=== PATIENT | male | born 1990 | race Caucasian/White ===

== ENCOUNTER 2016-07-29 12:31 | Emergency (ER) | payer SELFPAY ==
[~2016-07-29] VITALS: Ht 175.3 cm; Wt 119.0 kg
[~2016-07-29 12:31] MED LIST: ARIP1TAB5 PO; ATOM60 PO; MOBI15TA PO; ZITHTAB PO
[2016-07-29 12:55] VITALS: BP 149/96; PULSE 98; RESP 20; TEMP 98.4; O2SAT 98
[2016-07-29] MEDS ORDERED: ONDANSETRON HCL 4 MG/2 ML VIAL IV ONE (14:00)
[2016-07-29] MEDS ORDERED: SODIUM CHLOR 0.9% 1000 ML INJ 1,000 ML IV SCH (14:00)
[2016-07-29 14:04] LABS: AUTOMATED NEUTROPHIL # 12.1 TH/MM3 (1.8-7.7); BASOPHIL # 0.2 TH/MM3 (0-0.2); BASOPHIL % 1.8 % (0.0-2.0); HEMATOCRIT 44.4 % (39.0-51.0); LYMPH % 6.3 % (9.0-44.0); LYMPHOCYTE # 0.8 TH/MM3 (1.0-4.8); MEAN CELL VOLUME 86.3 FL (80.0-100.0); MEAN CORPUSCULAR HEMOGLOBIN 29.2 PG (27.0-34.0); MEAN CORPUSCULAR HGB CONC 33.8 % (32.0-36.0); MONO % 1.1 % (0.0-8.0); NEUT % 90.8 % (16.0-70.0); PLATELET COUNT 355 TH/MM3 (150-450); RED BLOOD COUNT 5.15 MIL/MM3 (4.50-5.90); RED CELL DISTRIBUTION WIDTH 12.3 % (11.6-17.2); WHITE BLOOD COUNT 13.2 TH/MM3 (4.0-11.0)
[2016-07-29 14:05] LABS: BLOOD, URINE TRACE (NEG); GLUCOSE,URINE NEG (NEG); KETONE, URINE TRACE mg/dL (NEG); NITRITE,URINE NEG (NEG)
--- NOTE | 2016-07-29 14:05 | PD ---
HPI Chief Complaint: GI Complaint Time Seen by Provider: 13:27 Travel History International Travel<30 days: No Contact w/Intl Traveler<30days: No Traveled to known affect area: No History of Present Illness HPI To 26-year-old man who presents to the emergency department of nausea vomiting ongoing for the past week or so. Describes yellowish emesis. He got concerned to 6 episodes of vomiting today. No fevers or chills. No history of previous similar symptoms. No history of abdominal surgeries. Has uses NSAIDs in the past but not really for the past month or 2. Rare alcohol use. No history of GERD or indigestion. No significant abdominal pain. He otherwise had been feeling generally well. History Past Medical History Narrative Medical Kidney stones Hypertension Bipolar disorder/ADHD Influenza Vaccination: No Past Surgical History Surgical History: No Previous Surgery Social History Alcohol Use: No (DENIES) Tobacco Use: No ("QUIT 2 MONTHS AGO") Allergies-Medications (Allergen,Severity, Reaction): Coded Allergies: Hydrocodone (Verified Allergy, Intermediate, Rash, 06/22/16) Reported Meds & Prescriptions Reported Meds & Active Scripts Active Reported Strattera (Atomoxetine HCl) 60 Mg Cap 60 Mg PO DAILY Abilify (Aripiprazole) 10 Mg Tab 10 Mg PO DAILY Review of Systems Except as stated in HPI: all other systems reviewed are Neg Physical Exam Narrative GENERAL: Well-appearing 26-year-old man, no acute distress. SKIN: Warm and dry. CARDIOVASCULAR: Regular rate and rhythm. No murmur appreciated. RESPIRATORY: No accessory muscle use. Clear to auscultation. Breath sounds equal bilaterally. GASTROINTESTINAL: Abdomen is obese, soft, with mild to moderate right lower quadrant tenderness to palpation. No rebound or guarding. MUSCULOSKELETAL: No obvious deformities. No edema. NEUROLOGICAL: Awake and alert. No obvious cranial nerve deficits. Motor grossly within normal limits. Normal speech. PSYCHIATRIC: Appropriate mood and affect; insight and judgment normal. Data Data Last Documented VS Vital Signs Date Time Temp Pulse Resp B/P Pulse Ox O2 Delivery O2 Flow Rate FiO2 07/29/16 12:55 98.4 98 20 149/96 98 Orders Complete Blood Count With Diff (07/29/16 13:42) Comprehensive Metabolic Panel (07/29/16 13:42) Iv Access Insert/Monitor (07/29/16 13:42) Urinalysis - C+S If Indicated (2/2/17 13:42) Ct Abd/Pel W Iv Contrast(Rout) (07/29/16 ) Sodium Chlor 0.9% 1000 Ml Inj (Ns 1000 M (07/29/16 14:00) Ondansetron Inj (Zofran Inj) (07/29/16 14:00) Lipase (07/29/16 13:50) Iohexol 350 Inj (Omnipaque 350 Inj) (07/29/16 14:54) Labs Laboratory Tests Test 07/29/16 07/29/16 13:50 13:55 White Blood Count 13.2 TH/MM3 Red Blood Count 5.15 MIL/MM3 Hemoglobin 15.0 GM/DL Hematocrit 44.4 % Mean Corpuscular Volume 86.3 FL Mean Corpuscular Hemoglobin 29.2 PG Mean Corpuscular Hemoglobin 33.8 % Concent Red Cell Distribution Width 12.3 % Platelet Count 355 TH/MM3 Mean Platelet Volume 7.1 FL Neutrophils (%) (Auto) 90.8 % Lymphocytes (%) (Auto) 6.3 % Monocytes (%) (Auto) 1.1 % Eosinophils (%) (Auto) 0.0 % Basophils (%) (Auto) 1.8 % Neutrophils # (Auto) 12.1 TH/MM3 Lymphocytes # (Auto) 0.8 TH/MM3 Monocytes # (Auto) 0.1 TH/MM3 Eosinophils # (Auto) 0.0 TH/MM3 Basophils # (Auto) 0.2 TH/MM3 CBC Comment DIFF FINAL Differential Comment Sodium Level 141 MEQ/L Potassium Level 4.2 MEQ/L Chloride Level 106 MEQ/L Carbon Dioxide Level 25.3 MEQ/L Anion Gap 10 MEQ/L Blood Urea Nitrogen 7 MG/DL Creatinine 0.95 MG/DL Estimat Glomerular Filtration 95 ML/MIN Rate Random Glucose 102 MG/DL Calcium Level 8.9 MG/DL Total Bilirubin 0.7 MG/DL Aspartate Amino Transf 18 U/L (AST/SGOT) Alanine Aminotransferase 37 U/L (ALT/SGPT) Alkaline Phosphatase 117 U/L Total Protein 8.2 GM/DL Albumin 3.5 GM/DL Lipase 148 U/L Urine Collection Type CLEAN CATCH Urine Color YELLOW Urine Turbidity CLEAR Urine pH 7.0 Urine Specific [place] 1.020 Urine Protein TRACE mg/dL Urine Glucose (UA) NEG mg/dL Urine Ketones TRACE mg/dL Urine Occult Blood TRACE Urine Nitrite NEG Urine Bilirubin NEG Urine Leukocyte Esterase NEG Urine RBC 0-3 /hpf Urine Squamous Epithelial 0-5 /hpf Cells Microscopic Urinalysis Comment CULT NOT INDICATED Urine Collection Time 13:55 MDM Medical Decision Making Medical Screen Exam Complete: Yes Emergency Medical Condition: Yes Interpretation(s) LABS: CBC remarkable for mild leukocytosis. CMP unremarkable. Lipase normal. CT abdomen and pelvis: Well-appearing thickening of the terminal ileum suggest Crohn's disease. No inflammatory changes. Normal appendix. Left-sided renal cyst. Differential Diagnosis Gastroenteritis, gastritis, hyperglycemia, appendicitis, gastric outlet obstruction, gastroparesis, other Narrative Course Medical decision making INITIAL calls a 26-year-old man who presents emergent department a weeks worth of nausea vomiting. No much abdominal pain but he does have right lower quadrant tenderness. Looks otherwise well. No clear explanation. Doesn't really seem like gastritis. We'll check labs, CT imaging to rule out appendicitis. Diagnosis Primary Impression: Abdominal pain Qualified Code: R10.31 - Right lower quadrant abdominal pain Additional Impression: Vomiting Qualified Code: R11.10 - Non-intractable vomiting, presence of nausea not specified, unspecified vomiting type Additional Instructions: Use Zofran as needed for nausea or vomiting. Follow-up with a primary physician for further evaluation. Return to the emergency department for any worsening abdominal pain, vomiting, high fevers, bloody diarrhea, or any other new or worsening symptoms. Med/Other Pt SpecificInfo: Prescription(s) given Scripts Ondansetron Odt (Zofran Odt)4 Mg Tab4 Mg SL Q8HR PRN (Nausea/Vomiting) #15 TAB May substitute non-ODT form. Prov:Kristopher Hurley MD 07/29/16 Disposition: 01 DISCHARGE HOME Condition: Stable Kristopher Hurley MD Jul 29, 2016 14:05
[2016-07-29 14:08] LABS: HEMO FLAGS DIFF FINAL
[2016-07-29 14:11] LABS: CHLORIDE 106 MEQ/L (98-107); POTASSIUM 4.2 MEQ/L (3.5-5.1); SODIUM (NA) 141 MEQ/L (136-145)
[2016-07-29 14:15] LABS: METHOD OF COLLECTION CLEAN CATCH; URINE COLOR YELLOW (YELLW/STRAW)
[2016-07-29 14:15] LABS: ANION GAP 10 MEQ/L (5-15); BICARBONATE 25.3 MEQ/L (21.0-32.0); BLOOD UREA NITROGEN 7 MG/DL (7-18)
[2016-07-29 14:16] LABS: COMMENT (UR) CULT NOT INDICATED; CULTURE IF INDICATED CULT NOT INDICATED; RBC, URINE 0-3 /hpf (0-3); SQUAMOUS EPITHELIAL CELL URINE 0-5 /hpf (0-5)
[2016-07-29 14:17] LABS: ALT (GPT) 37 U/L (12-78); AST (GOT) 18 U/L (15-37)
[2016-07-29 14:18] LABS: GLOMERULAR FILTRATION RATE 95 ML/MIN (>89)
[2016-07-29 14:19] LABS: TOTAL BILIRUBIN ADULT 0.7 MG/DL (0.2-1.0)
[2016-07-29 14:20] LABS: ALKALINE PHOSPHATASE 117 U/L (45-117)
[2016-07-29] MEDS ORDERED: IOHEXOL 350 MG/ML 10 ML VIAL (for RAD DIAG) IV ONE (14:54)
--- NOTE | 2016-07-29 15:05 | RADHPO ---
EXAM DATE/TIME: 07/29/2016 14:37 [facility] COMPARISON: No previous studies available for comparison. INDICATIONS : Nausea and vomiting x 1 week. Right lower quadrant pain. IV CONTRAST: 85 cc Omnipaque 350 (iohexol) IV ORAL CONTRAST: No oral contrast ingested. RADIATION DOSE: 22.11 CTDIvol (mGy) MEDICAL HISTORY : Hypertension. SURGICAL HISTORY : None. ENCOUNTER: Initial ACUITY: 1 week PAIN SCALE: 2/10 LOCATION: Right lower quadrant TECHNIQUE: Volumetric scanning of the abdomen and pelvis was performed. Using automated exposure control and ad justment of the mA and/or kV according to patient size, radiation dose was kept as low as reasonably achievable to obtain optimal diagnostic quality images. FINDINGS: LOWER LUNGS: The visualized lower lungs are clear. LIVER: Homogeneous density without lesion. There is no dilation of the biliary tree. No calcified gallston es. SPLEEN: Normal size without lesion. PANCREAS: Within normal limits. KIDNEYS: Normal in size and shape. There is no mass, stone or hydronephrosis. Several left-sided renal cysts. ADRENAL GLANDS: Within normal limits. VASCULAR: There is no aortic aneurysm. BOWEL/MESENTERY: There is wall thickening of the terminal ileum. No inflammatory changes. Appendix is normal.. There is no free intraperitoneal air or fluid. ABDOMINAL WALL: Within normal limits. RETROPERITONEUM: There is no lymphadenopathy. BLADDER: No wall thickening or mass. REPRODUCTIVE: Within normal limits. INGUINAL: There is no lymphadenopathy or hernia. MUSCULOSKELETAL: Within normal limits for patient age. CONCLUSION: 1. Wall thickening of the terminal ileum suggests Crohn's disease. No inflammatory changes. 2. Normal appendix. 3. Left-sided renal cyst. Trever Song MD on July 29, 2016 at 15:01 Board Certified Radiologist. This report was verified electronically.
[2016-07-29] MEDS ORDERED: ZOFR4TAB3 SL ×2 (15:12→15:29)
[2016-07-29 15:35] VITALS: BP 140/88
== END 2016-07-29 15:35 | disposition home or self-care (01) ==
LOC: PHED 12:31
DX: R10.31 Right lower quadrant pain (principal)
CPT/HCPCS: 74177; 80053; 81001; 83690; 85025; 96361; 96374; 99284; J2405; J7030; Q9967

== ENCOUNTER 2016-07-31 10:51 | Emergency (ER) | payer SELFPAY ==
[~2016-07-31] VITALS: Ht 175.3 cm; Wt 118.5 kg
[2016-07-31] VITALS (7 sets, daily range): BP systolic 152–209; BP diastolic 71–113; PULSE 64–100; RESP 16–22; TEMP 98.7; O2SAT 97–100
[~2016-07-31 10:51] MED LIST changes: -MOBI15TA PO; -ZITHTAB PO; +ZOFR4TAB3 SL
[2016-07-31] MEDS ORDERED: B/P MED PO (11:19)
[2016-07-31] MEDS ORDERED: ONDANSETRON HCL 4 MG/2 ML VIAL IV PUSH ONE ×2 (11:45→12:15)
[2016-07-31] MEDS ORDERED: DICYCLOMINE HCL 20 MG/2 ML VIAL IM ONE (11:45)
[2016-07-31] MEDS ORDERED: cloNIDine HCL 0.1 MG TAB PO ONE (11:45)
[2016-07-31] MEDS ORDERED: SODIUM CHLOR 0.9% 1000 ML INJ 1,000 ML IV ONE ×2 (11:45→14:00)
--- NOTE | 2016-07-31 11:49 | PD ---
HPI Chief Complaint: GI Complaint Time Seen by Provider: 11:38 Travel History International Travel<30 days: No Contact w/Intl Traveler<30days: No Traveled to known affect area: No History of Present Illness HPI Patient presents with complaints of nausea and vomiting with loose stools for 7- 10 days. Reports ER evaluation here 2 days ago with diagnosis of gastritis and prescribed Zofran. States he took a Zofran this morning but still threw up so he proceeded to the emergency room. Admits to poor fluid intake. Describes yellowish emesis. No fevers or chills. No history of previous similar symptoms. Denies any camping or recent antibiotics. He does report travel to [facility]. No history of abdominal surgeries. Has uses NSAIDs in the past but not really for the past month or 2. Rare alcohol use. No history of GERD or indigestion. No significant abdominal pain. He otherwise had been feeling generally well. PFSH Past Medical History Hx Anticoagulant Therapy: No ADHD: Yes Bipolar Disorder: Yes Anxiety: Yes Depression: Yes Cardiovascular Problems: Yes (HTN) Chemotherapy: No Cerebrovascular Accident: No Diabetes: No Diminished Hearing: No Hypertension: Yes Respiratory: No Immunizations Current: No Tetanus Vaccination: > 5 Years Influenza Vaccination: No Past Surgical History Surgical History: No Previous Surgery Hysterectomy: No Social History Alcohol Use: Yes (OCC) Tobacco Use: No ("QUIT 2 MONTHS AGO" JUST POT NOW) Substance Use: Yes (SMOKES POT) Allergies-Medications (Allergen,Severity, Reaction): Coded Allergies: Hydrocodone (Verified Allergy, Intermediate, Rash, 07/31/16) Reported Meds & Prescriptions Reported Meds & Active Scripts Active Zofran Odt (Ondansetron Odt) 4 Mg Tab 4 Mg SL Q8HR PRN May substitute non-ODT form. Reported [B/P Med] 1 Tab PO DAILY Strattera (Atomoxetine HCl) 60 Mg Cap 60 Mg PO DAILY Abilify (Aripiprazole) 10 Mg Tab 10 Mg PO DAILY Review of Systems Gastrointestinal: Positive: Nausea, Vomiting, Diarrhea Physical Exam Narrative GENERAL: Well-nourished, well-developed patient. SKIN: Warm and dry. HEAD: Normocephalic. EYES: No scleral icterus. No injection or drainage. NECK: Supple, trachea midline. No JVD or lymphadenopathy. CARDIOVASCULAR: Regular rate and rhythm without murmurs, gallops, or rubs. RESPIRATORY: Breath sounds equal bilaterally. No accessory muscle use. GASTROINTESTINAL: Abdomen soft, non-tender, nondistended. MUSCULOSKELETAL: No cyanosis, or edema. BACK: Nontender without obvious deformity. No CVA tenderness. Data Data Last Documented VS Vital Signs Date Time Temp Pulse Resp B/P Pulse Ox O2 Delivery O2 Flow Rate FiO2 07/31/16 14:57 100 18 152/71 100 Room Air 07/31/16 11:06 98.7 Orders Sodium Chlor 0.9% 1000 Ml Inj (Ns 1000 M (07/31/16 11:45) Ondansetron Inj (Zofran Inj) (07/31/16 11:45) Dicyclomine Inj (Bentyl Inj) (07/31/16 11:45) Clonidine (Catapres) (07/31/16 11:45) Ondansetron Inj (Zofran Inj) (07/31/16 12:15) Clonidine (Catapres) (07/31/16 12:30) Promethazine Inj (Phenergan Inj) (07/31/16 13:00) Complete Blood Count With Diff (07/31/16 13:50) Comprehensive Metabolic Panel (07/31/16 13:50) Lipase (07/31/16 13:50) Lactic Acid (07/31/16 13:50) Iv Access Insert/Monitor (07/31/16 13:50) Ecg Monitoring (07/31/16 13:50) Oximetry (07/31/16 13:50) NPO (07/31/16 13:50) Sodium Chloride 0.9% Flush (Ns Flush) (07/31/16 14:00) Prochlorperazine Inj (Compazine Inj) (07/31/16 14:00) Sodium Chlor 0.9% 1000 Ml Inj (Ns 1000 M (07/31/16 14:00) Labs Laboratory Tests Test 07/31/16 12:10 White Blood Count 13.4 TH/MM3 Red Blood Count 5.21 MIL/MM3 Hemoglobin 15.0 GM/DL Hematocrit 44.7 % Mean Corpuscular Volume 85.8 FL Mean Corpuscular Hemoglobin 28.9 PG Mean Corpuscular Hemoglobin 33.6 % Concent Red Cell Distribution Width 12.9 % Platelet Count 381 TH/MM3 Mean Platelet Volume 7.1 FL Neutrophils (%) (Auto) 89.9 % Lymphocytes (%) (Auto) 5.5 % Monocytes (%) (Auto) 1.7 % Eosinophils (%) (Auto) 0.1 % Basophils (%) (Auto) 2.8 % Neutrophils # (Auto) 12.1 TH/MM3 Lymphocytes # (Auto) 0.7 TH/MM3 Monocytes # (Auto) 0.2 TH/MM3 Eosinophils # (Auto) 0.0 TH/MM3 Basophils # (Auto) 0.4 TH/MM3 CBC Comment DIFF FINAL Differential Comment Sodium Level 140 MEQ/L Potassium Level 4.4 MEQ/L Chloride Level 104 MEQ/L Carbon Dioxide Level 27.9 MEQ/L Anion Gap 8 MEQ/L Blood Urea Nitrogen 8 MG/DL Creatinine 1.10 MG/DL Estimat Glomerular Filtration 80 ML/MIN Rate Random Glucose 119 MG/DL Lactic Acid Level 1.7 mmol/L Calcium Level 8.7 MG/DL Total Bilirubin 1.0 MG/DL Aspartate Amino Transf 17 U/L (AST/SGOT) Alanine Aminotransferase 36 U/L (ALT/SGPT) Alkaline Phosphatase 122 U/L Total Protein 8.8 GM/DL Albumin 3.7 GM/DL Lipase 156 U/L [facility] Medical Decision Making Medical Screen Exam Complete: Yes Emergency Medical Condition: Yes Differential Diagnosis Gastroenteritis, GERD, colitis Narrative Course Assessment and plan discussed patient at bedside, complete evaluation at last ER visit. CT at that time revealed some minimal changes that might indicate Crohn's otherwise negative. Labs are not significantly changed from previous evaluation. Patient did not respond well to Zofran or Phenergan but did have control of his nausea and vomiting with Compazine. Diagnosis Primary Impression: Gastroenteritis Patient Instructions: General Instructions Additional Instructions: Discussed the likelihood that this is a viral gastroenteritis and symptomatic treatment was appropriate. Encouraged to increase fluids. Encouraged a high fiber bland BRAT diet, antispasmodic and antibiotic as prescribed. Encouraged antihypertensive and a blood pressure log for evaluation. Follow-up with PCP. Med/Other Pt SpecificInfo: Prescription(s) given Scripts Lisinopril 20 Mg Tab20 Mg PO DAILY #30 TAB Ref 0 Prov:Damion Montenegro MD 07/31/16 Prochlorperazine Maleate 5 Mg Tab5 Mg PO Q4H PRN (NAUSEA OR VOMITING) #20 TAB Ref 0 Prov:Damion Montenegro MD 07/31/16 Hyoscyamine (Levsin)0.125 Mg Tab0.125 Mg PO Q4H #30 TAB Ref 0 Prov:Damion Montenegro MD 07/31/16 Disposition: 01 DISCHARGE HOME Condition: Good Damion Montenegro MD Jul 31, 2016 11:49
[2016-07-31] MEDS ORDERED: cloNIDine HCL 0.2 MG TAB PO ONE (12:30)
[2016-07-31] MEDS ORDERED: PROMETHAZINE INJ 25 MG/ML VIAL IM/IV ONE (13:00)
[2016-07-31] MEDS ORDERED: PROCHLORPERAZINE INJ 10 MG/2 ML VIAL IVS ONE (14:00)
[2016-07-31] MEDS ORDERED: SODIUM CHLORIDE 0.9% FLUSH 5 ML FLUSH IVF PRN (14:00)
[2016-07-31 14:23] LABS: AUTOMATED NEUTROPHIL # 12.1 TH/MM3 (1.8-7.7); BASOPHIL # 0.4 TH/MM3 (0-0.2); BASOPHIL % 2.8 % (0.0-2.0); EOSINOPHIL % 0.1 % (0.0-4.0); HEMATOCRIT 44.7 % (39.0-51.0); LYMPH % 5.5 % (9.0-44.0); LYMPHOCYTE # 0.7 TH/MM3 (1.0-4.8); MEAN CELL VOLUME 85.8 FL (80.0-100.0); MEAN CORPUSCULAR HEMOGLOBIN 28.9 PG (27.0-34.0); MEAN CORPUSCULAR HGB CONC 33.6 % (32.0-36.0); MONO % 1.7 % (0.0-8.0); NEUT % 89.9 % (16.0-70.0); PLATELET COUNT 381 TH/MM3 (150-450); RED BLOOD COUNT 5.21 MIL/MM3 (4.50-5.90); RED CELL DISTRIBUTION WIDTH 12.9 % (11.6-17.2); WHITE BLOOD COUNT 13.4 TH/MM3 (4.0-11.0)
[2016-07-31 14:25] LABS: HEMO FLAGS DIFF FINAL
[2016-07-31 14:30] LABS: CHLORIDE 104 MEQ/L (98-107); POTASSIUM 4.4 MEQ/L (3.5-5.1); SODIUM (NA) 140 MEQ/L (136-145)
[2016-07-31 14:34] LABS: ANION GAP 8 MEQ/L (5-15); BICARBONATE 27.9 MEQ/L (21.0-32.0); BLOOD UREA NITROGEN 8 MG/DL (7-18)
[2016-07-31 14:37] LABS: ALT (GPT) 36 U/L (12-78); AST (GOT) 17 U/L (15-37); GLOMERULAR FILTRATION RATE 80 ML/MIN (>89)
[2016-07-31 14:40] LABS: ALKALINE PHOSPHATASE 122 U/L (45-117)
[2016-07-31] MEDS ORDERED: PROC5TAB PO (15:07)
[2016-07-31] MEDS ORDERED: LEVS0.123 PO (15:07)
[2016-07-31] MEDS ORDERED: LISI-515 PO (15:07)
== END 2016-07-31 15:29 | disposition home or self-care (01) ==
LOC: PHED 10:51
DX: K52.9 Noninfective gastroenteritis and colitis, unspecified (principal); I10 Essential (primary) hypertension; Z87.891 Personal history of nicotine dependence
CPT/HCPCS: 80053; 83605; 83690; 85025; 96361; 96372; 96374; 96375; 99284; J0500; J0780; J2405; J2550; J7030

== ENCOUNTER 2016-11-22 10:12 | Emergency (ER) | payer SELFPAY ==
[~2016-11-22 10:12] MED LIST changes: +B/P MED PO; +LEVS0.123 PO; +LISI-515 PO; +PROC5TAB PO
[2016-11-22 10:21] VITALS: BP 141/72; PULSE 86; RESP 18; TEMP 98.4; O2SAT 99
[2016-11-22 10:24] VITALS: BP 141/72; PULSE 90; RESP 18; TEMP 98.4; O2SAT 97
--- NOTE | 2016-11-22 10:25 | PD ---
HPI Chief Complaint: Syncope/Near-Syncope Time Seen by Provider: 10:19 Travel History International Travel<30 days: No Contact w/Intl Traveler<30days: No Traveled to known affect area: No History of Present Illness HPI This is a 26-year-old male who presents to the emergency department having been working outside this morning when he went into the bathroom, had an episode of vomiting and passed out. He woke up on the ground and EMS were there. He denies any loss of bowel or bladder. He said this morning he had had some loose stools as well. He said when he was working outside he didn't drink any water he thinks he probably got dehydrated. He denies any chest pain or trouble breathing. Currently he feels back to normal. He says he's never passed out before except maybe when drinking alcohol. He doesn't drink every day. PFSH Past Medical History Hx Anticoagulant Therapy: No ADHD: Yes Bipolar Disorder: Yes Anxiety: Yes Depression: Yes Cardiovascular Problems: Yes (HTN) Chemotherapy: No Cerebrovascular Accident: No Diabetes: No Diminished Hearing: No Hypertension: Yes Respiratory: No Immunizations Current: No ?: Not Past Surgical History Hysterectomy: No Social History Alcohol Use: Yes (OCC) Tobacco Use: No ("QUIT 2 MONTHS AGO" JUST POT NOW) Substance Use: Yes (SMOKES POT) Allergies-Medications (Allergen,Severity, Reaction): Coded Allergies: Hydrocodone (Verified Allergy, Intermediate, Rash, 11/22/16) Reported Meds & Prescriptions Reported Meds & Active Scripts Active Lisinopril 20 Mg Tab 20 Mg PO DAILY Lisinopril 20 Mg Tab 20 Mg PO DAILY Prochlorperazine Maleate 5 Mg Tab 5 Mg PO Q4H PRN Levsin (Hyoscyamine Sulfate) 0.125 Mg Tab 0.125 Mg PO Q4H Zofran Odt (Ondansetron Odt) 4 Mg Tab 4 Mg SL Q8HR PRN May substitute non-ODT form. Reported [B/P Med] 1 Tab PO DAILY Strattera (Atomoxetine HCl) 60 Mg Cap 60 Mg PO DAILY Abilify (Aripiprazole) 10 Mg Tab 10 Mg PO DAILY Review of Systems Except as stated in HPI: all other systems reviewed are Neg Physical Exam Narrative GENERAL:Well appearing, no acute distress SKIN: Focused skin assessment warm and dry. HEAD: Atraumatic. Normocephalic. EYES: Pupils equal and round. No injection or drainage. ENT: Moist mucous membranes NECK: Trachea midline. CARDIOVASCULAR: Regular rate and rhythm. No murmur appreciated. RESPIRATORY: Clear to auscultation. Breath sounds equal bilaterally. GASTROINTESTINAL: Abdomen soft, non-tender, nondistended. MUSCULOSKELETAL: No obvious deformities. NEUROLOGICAL: Awake and alert. No obvious cranial nerve deficits. Moving all extremities. PSYCHIATRIC: Appropriate mood and affect; insight and judgment normal. Data Data Last Documented VS Vital Signs Date Time Temp Pulse Resp B/P Pulse Ox O2 Delivery O2 Flow Rate FiO2 11/22/16 10:24 98.4 90 18 141/72 97 Room Air Orders Complete Blood Count With Diff (11/22/16 10:23) Basic Metabolic Panel (Bmp) (11/22/16 10:23) Electrocardiogram (11/22/16 ) ^ Insert Iv (11/22/16 10:23) Sodium Chlor 0.9% 1000 Ml Inj (Ns 1000 M (11/22/16 10:30) Mandatory Outpatient Referral (11/22/16 10:51) Labs Laboratory Tests Test 11/22/16 10:20 White Blood Count 7.9 TH/MM3 Red Blood Count 4.59 MIL/MM3 Hemoglobin 13.9 GM/DL Hematocrit 39.3 % Mean Corpuscular Volume 85.5 FL Mean Corpuscular Hemoglobin 30.3 PG Mean Corpuscular Hemoglobin 35.5 % Concent Red Cell Distribution Width 14.1 % Platelet Count 313 TH/MM3 Mean Platelet Volume 7.1 FL Neutrophils (%) (Auto) 77.1 % Lymphocytes (%) (Auto) 16.6 % Monocytes (%) (Auto) 5.2 % Eosinophils (%) (Auto) 0.4 % Basophils (%) (Auto) 0.7 % Neutrophils # (Auto) 6.1 TH/MM3 Lymphocytes # (Auto) 1.3 TH/MM3 Monocytes # (Auto) 0.4 TH/MM3 Eosinophils # (Auto) 0.0 TH/MM3 Basophils # (Auto) 0.1 TH/MM3 CBC Comment DIFF FINAL Differential Comment Sodium Level 140 MEQ/L Potassium Level 3.9 MEQ/L Chloride Level 106 MEQ/L Carbon Dioxide Level 26.2 MEQ/L Anion Gap 8 MEQ/L Blood Urea Nitrogen 10 MG/DL Creatinine 0.85 MG/DL Estimat Glomerular Filtration 108 ML/MIN Rate Random Glucose 111 MG/DL Calcium Level 9.1 MG/DL [facility] Medical Decision Making Medical Screen Exam Complete: Yes Emergency Medical Condition: Yes Interpretation(s) EKG: Left ventricular hypertrophy similar to EKG from May No leukocytosis Electrolytes are reassuring Differential Diagnosis Dehydration, heat stroke, arrhythmia, hypertrophic cardiomyopathy Narrative Course This is a 26-year-old male who presents to the emergency department having had an episode of syncope prior to arrival. He had been working outside in the heat all morning. He was placed on a monitor and an IV was established. Labs are all reassuring. EKG demonstrates left ventricular hypertrophy, changes that I'm surprised to see at his young age. He does have poorly controlled high blood pressure. I am going to reinitiate his lisinopril. I considered hypertrophic cardiomyopathy. Patient doesn't have any insurance. He has no family history of sudden . I think he needs an echo, but his EKG is unchanged from May so this is likely not necessary in the acute setting. Given his symptoms I think this is more likely he related syncope today. A mandatory referral will be placed for cardiology and hopefully the patient can be assessed further as an outpatient. Diagnosis Primary Impression: Syncope Qualified Code: T67.1XXA - Heat syncope, initial encounter Patient Instructions: General Instructions Additional Instructions: If you develop severe chest pain, shortness of breath, sweating, lightheadedness , dizziness or difficulty breathing return to the emergency department immediately. Followup with your primary care physician in 2-3 days if your symptoms are not resolved. Med/Other Pt SpecificInfo: Prescription(s) given Scripts Lisinopril 20 Mg Tab20 Mg PO DAILY #30 TAB Ref 0 Prov:Jessica Desai MD 11/22/16 Disposition: 01 DISCHARGE HOME Condition: Stable Jessica Desai MD November 22, 2016 10:25 Jessica Desai MD November 22, 2016 10:25
[2016-11-22] MEDS ORDERED: SODIUM CHLOR 0.9% 1000 ML INJ 1,000 ML IV ONE (10:30)
[2016-11-22 10:52] LABS: AUTOMATED NEUTROPHIL # 6.1 TH/MM3 (1.8-7.7); BASOPHIL # 0.1 TH/MM3 (0-0.2); BASOPHIL % 0.7 % (0.0-2.0); EOSINOPHIL % 0.4 % (0.0-4.0); HEMATOCRIT 39.3 % (39.0-51.0); HEMO FLAGS DIFF FINAL; LYMPH % 16.6 % (9.0-44.0); LYMPHOCYTE # 1.3 TH/MM3 (1.0-4.8); MEAN CELL VOLUME 85.5 FL (80.0-100.0); MEAN CORPUSCULAR HEMOGLOBIN 30.3 PG (27.0-34.0); MEAN CORPUSCULAR HGB CONC 35.5 % (32.0-36.0); MONO % 5.2 % (0.0-8.0); NEUT % 77.1 % (16.0-70.0); PLATELET COUNT 313 TH/MM3 (150-450); RED BLOOD COUNT 4.59 MIL/MM3 (4.50-5.90); RED CELL DISTRIBUTION WIDTH 14.1 % (11.6-17.2); WHITE BLOOD COUNT 7.9 TH/MM3 (4.0-11.0)
[2016-11-22 11:09] LABS: BICARBONATE 26.2 MEQ/L (21.0-32.0); POTASSIUM 3.9 MEQ/L (3.5-5.1)
[2016-11-22] MEDS ORDERED: LISI-515 PO (11:21)
--- NOTE | 2016-11-22 11:23 | EKG ---
Date Performed: 11/22/2016 Time Performed: 10:26:09 PTAGE: 26 years EKG: Sinus rhythm LEFT VENTRICULAR HYPERTROPHY AND ST-T CHANGE ABNORMAL ECG No significant change from prior electroca rdiogram. PREVIOUS TRACING : 06/22/2016 22.06 DOCTOR: Singh Galloway Interpretating Date/Time 11/22/2016 11:22:35
[2016-11-22 11:37] VITALS: BP 142/76
== END 2016-11-22 11:38 | disposition home or self-care (01) ==
LOC: NEPE 10:12
DX: T67.1XXA Heat syncope, initial encounter (principal); X30.XXXA Exposure to excessive natural heat, initial encounter
CPT/HCPCS: 80048; 85025; 93005; 96360; 99284; J7030

== ENCOUNTER 2017-03-18 08:37 | Emergency (ER) | payer SELFPAY ==
[~2017-03-18] VITALS: Ht 175.3 cm; Wt 114.0 kg
[2017-03-18 08:49] VITALS: BP 151/84; PULSE 67; RESP 16; TEMP 98; O2SAT 96
[2017-03-18] MEDS ORDERED: PENI500T PO (09:06)
[2017-03-18] MEDS ORDERED: TRAM50TA PO (09:06)
--- NOTE | 2017-03-18 09:09 | PD ---
HPI Chief Complaint: tooth pain Time Seen by Provider: 08:51 Travel History International Travel<30 days: No Contact w/Intl Traveler<30days: No Traveled to known affect area: No History of Present Illness HPI This patient complains of dental pain and a left lower molar. Duration 2 days. Severity is moderate. Denies fever. He does not have a dentist so came here PFSH Past Medical History Hx Anticoagulant Therapy: No ADHD: Yes Bipolar Disorder: Yes Anxiety: Yes Depression: Yes Cardiovascular Problems: Yes (HTN) Chemotherapy: No Cerebrovascular Accident: No Diabetes: No Diminished Hearing: No Hypertension: Yes Respiratory: No Immunizations Current: No Past Surgical History Hysterectomy: No Social History Alcohol Use: Yes (OCC) Tobacco Use: No ("QUIT 2 MONTHS AGO" JUST POT NOW) Substance Use: Yes (SMOKES POT) Allergies-Medications (Allergen,Severity, Reaction): Coded Allergies: hydrocodone (Unverified Allergy, Intermediate, Rash, 02/08/17) Reported Meds & Prescriptions Reported Meds & Active Scripts Active Lisinopril 20 Mg Tab 20 Mg PO DAILY Lisinopril 20 Mg Tab 20 Mg PO DAILY Prochlorperazine Maleate 5 Mg Tab 5 Mg PO Q4H PRN Levsin (Hyoscyamine Sulfate) 0.125 Mg Tab 0.125 Mg PO Q4H Zofran Odt (Ondansetron Odt) 4 Mg Tab 4 Mg SL Q8HR PRN May substitute non-ODT form. Reported [B/P Med] 1 Tab PO DAILY Strattera (Atomoxetine HCl) 60 Mg Cap 60 Mg PO DAILY Abilify (Aripiprazole) 10 Mg Tab 10 Mg PO DAILY Review of Systems General / Constitutional: No: Fever HENT: Positive: Dental Difficulties, No: Headaches Cardiovascular: No: Chest Pain or Discomfort Physical Exam Narrative NECK: Symmetrical appearance, midline trachea. No mass or crepitus. Thyroid without enlargement, tenderness, or mass. SKIN: Focused skin assessment reveals no rash or ulcers. Skin is warm and dry. Palpation shows no induration or nodules. Throat: No gingival abscess. Uvula midline. No exudate. He has a mostly rotted out left lower jaw molar that's tender. Data Data Last Documented VS Vital Signs Date Time Temp Pulse Resp B/P (MAP) Pulse Ox O2 Delivery O2 Flow Rate FiO2 03/18/17 08:49 98.0 67 16 151/84 (106) 96 Room Air MDM Medical Decision Making Medical Screen Exam Complete: Yes Emergency Medical Condition: Yes Medical Record Reviewed: Yes Differential Diagnosis Cavity, abscess, gingivitis Narrative Course I have reviewed the patient's electronic medical record. I gave him prescription for penicillin as well as some tramadol for pain relief He realizes he needs dental follow-up Diagnosis Primary Impression: Dentalgia Additional Instructions: Follow-up with dentist The patient was warned about potential sedation for the medications they will receive on prescription. Med/Other Pt SpecificInfo: Prescription(s) given Scripts Tramadol (Tramadol) 50 Mg Tab 50 MG PO Q6H Y for PAIN, #20 TAB 0 Refills Prov: Eric Rivera MD 03/18/17 Penicillin V Potassium (Penicillin V Potassium) 500 Mg Tab 500 MG PO Q8H for Infection, #20 TAB 0 Refills Prov: Eric Rivera MD 03/18/17 Disposition: 01 DISCHARGE HOME Condition: Stable Eric Rivera MD Mar 18, 2017 09:09
== END 2017-03-18 09:20 | disposition home or self-care (01) ==
LOC: PHED 08:37
DX: K08.89 Other specified disorders of teeth and supporting structures (principal); I10 Essential (primary) hypertension
CPT/HCPCS: 99284